=== PATIENT | male | born 1935 | race Caucasian/White ===

== ENCOUNTER 2016-10-01 13:44 | Inpatient (IN) | payer MEDICARE ==
[~2016-10-01] VITALS: Ht 175.3 cm; Wt 83.5 kg
[2016-10-01 15:38] LABS: HEMOGLOBIN 15.6 gm/dl (14.0-17.5); RED BLOOD COUNT 4.6 M/UL (4.20-5.50); WHITE BLOOD COUNT 5.6 K/UL (4.5-11.0)
[2016-10-01 15:58] LABS: BUN/CREATININE RATIO 11 (0-10)
[2016-10-01] MEDS ORDERED: ALPRAZOLAM0.5 MG PO (23:32)
[2016-10-01] MEDS ORDERED: NEXIUM40 MG PO (23:32)
--- NOTE | 2016-10-02 17:14 | NUR ---
PT WAS GIVEN LOVENOX INJECTION TOO EARLY. WHEN I REALIZED MD WAS NOTIFIED. WILL CONTINUE TO MONITOR PATIENT FOR ANY. PHARMACY WAS NOTIFIED AND RECOMMENDATION TO START ELIQUIS TOMORROW.
[2016-10-03 04:36] LABS: HEMOGLOBIN 14.7 gm/dl (14.0-17.5); RED BLOOD COUNT 4.32 M/UL (4.20-5.50); WHITE BLOOD COUNT 4.9 K/UL (4.5-11.0)
[2016-10-03 05:05] LABS: BUN/CREATININE RATIO 14 (0-10)
[2016-10-03] MEDS ORDERED: ELIQUIS5 MG PO ×2 (12:43→12:44)
== END 2016-10-03 13:01 | disposition home or self-care (01) | DRG 299 ==
LOC: ER1 13:44 → ZEROF 18:30 → MED SURG 4 18:30
PROVIDERS: Student in an Organized Health Care Education/Training Program; ADMIT Internal Medicine
DX: I82.441 Acute embolism and thrombosis of right tibial vein (principal); I26.09 Other pulmonary embolism with acute cor pulmonale; J90 Pleural effusion, not elsewhere classified; K21.9 Gastro-esophageal reflux disease without esophagitis; F41.9 Anxiety disorder, unspecified; Z88.0 Allergy status to penicillin; K44.9 Diaphragmatic hernia without obstruction or gangrene; I10 Essential (primary) hypertension; J44.9 Chronic obstructive pulmonary disease, unspecified
CPT/HCPCS: ECHO; 36415; 71010; 71020; 80048; 80053; 82550; 82553; 83735; 83874; 83880; 84484; 85025; 85610; 93005; 93306; 93970; 96360; 96361; 96372; 99291; J1650; J7050; Q9963